=== PATIENT | female | born 1975 | race Caucasian/White ===

== ENCOUNTER 2017-09-26 15:56 | Emergency (ER) | payer BC ==
[2017-09-26] MEDS ORDERED: Acetaminophen/HYDROcodone 325-5 MG Tab PO STA (17:26)
[2017-09-26] MEDS ORDERED: Orphenadrine 100 MG Tab.ER PO STA (17:26)
--- NOTE | 2017-09-26 18:33 | EDM.PDOC ---
ED HPI GENERAL MEDICAL PROBLEM - General Chief Complaint: Back Pain or Injury Stated Complaint: BACK PAIN Time Seen by Provider: 09/26/17 17:09 Source of Information: Reports: Patient History Limitations: Reports: No Limitations - History of Present Illness INITIAL COMMENTS - FREE TEXT/NARRATIVE: The patient states that she developed low back pain that sometimes radiates to her bilateral posterior thighs, about intermediate down, around 15:00, when she flexed forward. She states that the pain is tolerable if she is supine, but worse if she is upright or attempts to walk. No prior low back issues. The patient's PCP is Valerie Macdonald in [place]. Lower Back Pain Score (Numeric/FACES): 10 - Related Data Allergies Allergy/AdvReac Type Severity Reaction Status Date / Time Penicillins Allergy Cannot Verified 09/26/17 16:21 Remember Home Meds: Home Meds Acetaminophen/HYDROcodone [[place] 325-5 MG] 1 - 2 tab PO Q6H PRN #10 tablet 09/26 [Rx] Orphenadrine [Norflex] 1 tab PO Q12H #20 tab.er 09/26/17 [Rx] Sertraline HCl [Zoloft] 150 mg PO DAILY 09/26/17 [History] rOPINIRole [Requip] 0.5 mg PO BEDTIME 09/26/17 [History] Past Medical History Neurological History: Reports: Seizure (as a child), Other (See Below) ( Restless leg syndrome) Psychiatric History: Reports: Anxiety, Depression - Past Surgical History HEENT Surgical History: Reports: Oral Surgery (wisdom teeth extraction) Musculoskeletal Surgical History: Reports: Carpal Tunnel (right only) Social & Family History - Tobacco Use Smoking Status *Q: Never Smoker - Caffeine Use Caffeine Use: Reports: Coffee, Soda - Alcohol Use Alcohol Use History: Yes Alcohol Use Frequency: Socially - Recreational Drug Use Recreational Drug Use: No - Living Situation & Occupation Living situation: Reports: , with Significant Other (Boyfriend) 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 ED EXAM,LOWER BACK PAIN/INJURY - Physical Exam Exam: See Below Exam Limited By: Physical Impairment (The patient screams with virtually any attempt at movement) General Appearance: Alert, WD/WN, Moderate Distress Eye Exam: Bilateral Eye: EOMI, Normal Inspection Ears: Normal External Exam, Hearing Grossly Normal Nose: Normal Inspection, No Blood Throat/Mouth: Normal Inspection, Normal Lips, Normal Voice, No Airway Compromise Head: Atraumatic, Normocephalic Neck: Normal Inspection, Full Range of Motion Respiratory/Chest: No Respiratory Distress, Lungs Clear, Normal Breath Sounds, No Accessory Muscle Use Cardiovascular: Normal Peripheral Pulses, Regular Rate, Rhythm, No Edema, No Gallop, No JVD, No Murmur, No Rub GI/Abdominal: Normal Bowel Sounds, Soft, Non-Tender, No Organomegaly, No Distention, No Abnormal Bruit, No Mass (Female) Exam: Deferred Rectal (Female) Exam: Deferred Back Exam: Other (No visible abnormality to the patient's back, such as swelling , erythema, ecchymosis, or abrasion. No tenderness to palpation of the lumbar spinous processes. No tenderness to the lumbar paraspinous muscles and no tenderness to the left or right SI joints. Straight leg raise induces low back pain, but no radiculopathy, at 70 bilaterally. The patient is able to flex her spine to approximately 5. She is able to extend to approximately 40. She is able to tilt to 45 bilaterally. She is able to twist to 30 bilaterally. Unilateral knee bend is normal bilaterally.) Extremities: Normal Inspection, Normal Range of Motion, No Pedal Edema, Normal Capillary Refill Neurological: Alert, Normal Dorsiflexion, Normal Plantar Flexion, No Motor/ Sensory Deficits, Oriented x 3 Psychiatric: Anxious Skin Exam: Warm, Dry, Intact, Normal Color, No Rash Course - Vital Signs Last Recorded V/S: Last Vital Signs Temp 37.7 C 09/26/17 16:17 Pulse 86 09/26/17 16:17 Resp 16 09/26/17 16:17 BP 150/114 H 09/26/17 16:17 Pulse Ox 95 09/26/17 16:17 - Orders/Labs/Meds Meds: Medications Discontinued Medications Generic Name Dose Route Start Last Admin Trade Name Freq PRN Reason Stop Dose Admin Hydrocodone Bitart/Acetaminophen 2 tab 09/26/17 17:26 09/26/17 17:42 [place] 325-5 Mg PO 09/26/17 17:27 2 tab ONETIME STA Administration Orphenadrine Citrate 100 mg 09/26/17 17:26 09/26/17 17:42 Norflex PO 09/26/17 17:27 100 mg ONETIME STA Administration - Re-Assessments/Exams Free Text/Narrative Re-Assessment/Exam: 09/26/17 18:28 Initially, the patient was in too much pain to be able to perform a meaningful exam. I was only able to perform a straight leg raise and physically examine her lower back, however, I was not able to evaluate for flexion/extension, tilt , twist, or unilateral knee bend, as the patient was unable to stand. She received 2 tablets of [place] and one tablet of Norflex, and after half an hour, I was able to perform the remainder of her examination. I find that her history and physical examination indicate that her pain is most likely due to a muscle spasm, less likely due to a herniated intervertebral disc. I will therefore discharge the patient home with a prescription for Norflex and [place], recommending that she take [id number] ibuprofen in addition. I stressed that it is important that she stay moving, that swimming is best, but walking is good, as well. I advised the patient to return to the ED for reevaluation if she develops any weakness/paralysis/incontinence. Departure - Departure Time of Disposition: 18:30 Disposition: Home, Self-Care 01 Condition: Good Clinical Impression: Spasm of muscle of lower back - Discharge Information *PRESCRIPTION DRUG MONITORING PROGRAM REVIEWED*: Not Applicable *COPY OF PRESCRIPTION DRUG MONITORING REPORT IN PATIENT PIO: Not Applicable Prescriptions: Acetaminophen/HYDROcodone [[place] 325-5 MG] 1 - 2 tab PO Q6H PRN #10 tablet PRN Reason: Pain (Severe 7-10) Orphenadrine [Norflex] 1 tab PO Q12H #20 tab.er Instructions: Muscle Cramps and Spasms, [id number] Referrals: Valerie Macdonald NP [Primary Care Provider] - Forms: ED Department Discharge Additional Instructions: You were seen in the emergency room for sudden-onset low back pain radiating intermediate down the back of both thighs. Based on your history and physical examination, your pain is MOST LIKELY due to a muscle spasm, less likely due to a herniated intervertebral disc. Take [id number] ibuprofen, 2-3 tablets (400-600 mg) every 8 hours, with food, [id number]. You may take 1-2 tablets of the opioid pain reliever [place] up to every 6 hours, as needed for pain not relieved by ibuprofen. If you take [place], do not drive or operate heavy machinery for 10 hours afterwards. [place] will likely cause constipation, so consider taking a stool softener. Take one tablet of the muscle relaxant Norflex every 12 hours, starting tomorrow morning, 09/27/2017, as prescribed. As discussed, it is very important that you stay active. Swimming is best, but walking is good, as well. Do not lie in bed. Follow-up with your PCP, Valerie Macdonald, as needed. If you develop weakness/paralysis of one of your lower limbs, or incontinence of bowel or bladder, please return to the ER for reevaluation.
== END 2017-09-26 18:52 | disposition home or self-care (01) ==
LOC: JD.ED 15:56
DX: M62.830 Muscle spasm of back (principal); Z88.0 Allergy status to penicillin; Z79.899 Other long term (current) drug therapy
CPT/HCPCS: 99283; A9270

== ENCOUNTER 2021-08-16 03:48 | Emergency (ER) | payer BC ==
[2021-08-16] MEDS ORDERED: Ondansetron 4 MG/2 ML SDV IVPUSH ONE (04:26)
[2021-08-16] MEDS ORDERED: Famotidine 20 MG/2 ML SDV IVPUSH ONE (04:26)
[2021-08-16] MEDS ORDERED: Ketorolac 15 MG/ML SDV IVPUSH ONE (05:19)
[2021-08-16] MEDS ORDERED: Iopamidol 612 MG/ML 100 ML Bottle IVPUSH ONE (05:22)
[2021-08-16] MEDS ORDERED: Sodium Chloride 0.9% 10 ML Syringe FLUSH PRN (05:22)
[2021-08-16] MEDS ORDERED: Magnesium Citrate Solution 296 ML Bottle PO ONE (06:09)
== END 2021-08-16 06:43 | disposition home or self-care (01) ==
LOC: JD.ED 03:48
DX: K59.00 Constipation, unspecified (principal); Z88.0 Allergy status to penicillin
CPT/HCPCS: 36415; 74177; 80053; 81025; 83605; 83690; 85025; 96374; 96375; 99284; A9270; J1885; J2405; J3490; Q9967